=== PATIENT | male | born 1980 | race American Indian/Alaskan Native ===

== ENCOUNTER 2017-07-30 00:54 | Emergency (ER) | payer OTHER ==
--- NOTE | 2017-07-30 04:18 | XRay Report ---
FINAL REPORT PROCEDURE: XR WRIST 2V RT TECHNIQUE: RIGHT wrist radiographs, including AP, lateral, and oblique views. CPT 81945 HISTORY: RT wrist pain COMPARISON: No prior studies are available for comparison. FINDINGS: Fracture (s) and/or Dislocation(s): There is a nondisplaced cortical fracture of the radial styloid process. The ulna is intact. The carpal bones are intact.. Alignment: Normal . Joint space(s): There is no joint dislocation.. Soft tissues: Normal . Bone mineralization: Normal . Foreign bodies: None . IMPRESSION: There is a nondisplaced cortical fracture of the radial styloid process. There is no joint dislocation.. .
[2017-07-30] MEDS ORDERED: NORCO 5/325 PO ONE (07:25)
--- NOTE | 2017-07-30 07:26 | Emergency Department Report ---
ED Upper Extremity Inj HPI - General Chief Complaint: Extremity Injury, Upper Stated Complaint: RT WRIST PAIN Time Seen by Provider: 07/30/17 07:13 Source: patient, family Mode of arrival: Ambulatory Limitations: No Limitations - History of Present Illness MD Complaint: Injury to:: right -: Gradual, month(s) (1) Other Extremity Injury: Wrist: Right Other Injuries: none Handedness: right Place: home Improves With: cold therapy, medication (motrin) Context: other (not sure happened 1 m ago) Associated Symptoms: denies other symptoms - Related Data Previous Rx's Medication Instructions Recorded Last Taken Type traMADol [Ultram] 50 mg PO Q6HR PRN #12 tablet 07/30/17 Unknown Rx Allergies Allergy/AdvReac Type Severity Reaction Status Date / Time No Known Allergies Allergy Unverified 03/02/16 09:31 ED Review of Systems ROS: Stated complaint: RT WRIST PAIN Other details as noted in HPI Comment: All other systems reviewed and negative Musculoskeletal: other (r wrist pain) ED Past Medical Hx - Past Medical History Previous Medical History?: No - Surgical History Past Surgical History?: No - Social History Smoking Status: Current Every Day Smoker Substance Use Type: Alcohol - Medications Home Medications: Home Medications Medication Instructions Recorded Confirmed Last Taken Type traMADol [Ultram] 50 mg PO Q6HR PRN #12 tablet 07/30/17 Unknown Rx ED Physical Exam - General Limitations: No Limitations General appearance: alert - Head Head exam: Present: atraumatic - Eye Eye exam: Present: PERRL, EOMI - ENT ENT exam: Present: mucous membranes moist - Neck Neck exam: Present: normal inspection - Respiratory Respiratory exam: Present: normal lung sounds bilaterally - Cardiovascular Cardiovascular Exam: Present: regular rate - GI/Abdominal GI/Abdominal exam: Present: soft - Rectal Rectal exam: Present: deferred - Extremities Exam Extremities exam: Present: normal inspection, full ROM, tenderness, normal capillary refill - Expanded Upper Extremity Exam Right Elbow exam: Present: normal inspection Forearm Wrist exam: Present: tenderness, swelling. Absent: abrasion, laceration , ecchymosis Hand Wrist exam: Present: normal inspection Neuro motor exam: Present: wrist extension intact, thumb opposition intact Neurosensory exam: Present: radial nerve intact, ulnar nerve intact, median nerve intact Vascular: Present: normal capillary refill, radial pulse, ulnar pulse - Back Exam Back exam: Present: normal inspection - Neurological Exam Neurological exam: Present: alert, oriented X3 - Psychiatric Psychiatric exam: Present: normal affect, normal mood - Skin Skin exam: Present: warm, dry, intact ED Course Vital Signs 07/30/17 01:51 Temperature 98.5 F Pulse Rate 100 H Respiratory 18 Rate Blood Pressure 150/96 O2 Sat by Pulse 100 Oximetry - Reevaluation(s) Reevaluation #1: 07/30/17 07:45 to er w 1 m hx of r wrist pain he does not remember any 1 incident when it started he says he could have done it at work he has [facility] small brace on but it is not helping nor is the motrin he is taking at home medial, ulnar, rad nerve intact rad and ulnar pulses good rapid cap refill pt and fam updated splint medicated dc home w dc poc ED Medical Decision Making - Radiology Data Radiology results: report reviewed, image reviewed - Medical Decision Making see note - Differential Diagnosis ro fx Critical care attestation.: If time is entered above; I have spent that time in minutes in the direct care of this critically ill patient, excluding procedure time. ED Disposition Clinical Impression: Wrist fracture, right Disposition: DC-01 TO HOME OR SELFCARE Is pt being admited?: No Does the pt Need Aspirin: No Condition: Stable Instructions: Wrist Fracture in Adults (ED) Additional Instructions: splint ice rest elevate follow up with ortho motrin, over the counter, 800 mg orally every 8 hours for mild pain ultram for severe pain Prescriptions: traMADol [Ultram] 50 mg PO Q6HR PRN #12 tablet PRN Reason: Pain Referrals: EVE GUERIN MD [Primary Care Provider] - 3-5 Days VERONICA TIRADO MD [Staff Physician] - 3-5 Days Time of Disposition: 07:34
[2017-07-30 09:20] VITALS: BP 144/104
== END 2017-07-30 09:21 | disposition home or self-care (01) ==
LOC: ED 00:54
DX: S52.514A Nondisplaced fracture of right radial styloid process, initial encounter for closed fracture (principal); F17.200 Nicotine dependence, unspecified, uncomplicated; X58.XXXA Exposure to other specified factors, initial encounter; Y93.89 Activity, other specified; Y99.8 Other external cause status; Y92.009 Unspecified place in unspecified non-institutional (private) residence as the place of occurrence of the external cause
CPT/HCPCS: 99284

== ENCOUNTER 2021-01-14 09:22 | Emergency (ER) | payer OTHER ==
[2021-01-14 09:36] VITALS: BP 147/101
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
== END 2021-01-14 11:30 | disposition home or self-care (01) ==
LOC: ED 09:22
DX: M54.2 Cervicalgia (principal); M54.5 Low back pain; F17.200 Nicotine dependence, unspecified, uncomplicated; Z72.89 Other problems related to lifestyle; V89.2XXA Person injured in unspecified motor-vehicle accident, traffic, initial encounter; Y93.89 Activity, other specified; Y92.488 Other paved roadways as the place of occurrence of the external cause; Y99.8 Other external cause status
CPT/HCPCS: 99281